=== PATIENT | male | born 1955 | race Hispanic/Latino ===

== ENCOUNTER 2019-10-28 19:14 | Emergency (ER) | payer OTHER, SELFPAY ==
[2019-10-28] VITALS (9 sets, daily range): BP systolic 174–211; BP diastolic 100–179; PULSE 61–65; RESP 17–23; TEMP 36.2; O2SAT 94–99; BMI 29.5
--- NOTE | 2019-10-28 19:41 | RAD_ITS ---
STUDY: X-RAY - RIGHT SHOULDER REASON FOR EXAM: Male, 64 years old. fell today TECHNIQUE: 2 view(s) of the shoulder. COMPARISON: None. FINDINGS: The humerus is anteriorly inferiorly dislocated and locked below the glenoid process. The humerus is intact. RAD/Shoulder min 2 Views IMPRESSION: Anterior inferior dislocation of the humerus. Electronically Signed: Jordyn Cunningham, at 20:27 EDT Tel , Service support ,
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
[2019-10-28] MEDS: Ondansetron 4 MG/2 ML Vial IV (19:50)
[2019-10-28] MEDS: Morphine 4 MG/ML Syringe IM (19:50)
[2019-10-28] MEDS: 0.9% Normal Saline 1,000 ML 999 ML IV (20:43)
[2019-10-28] MEDS: Propofol 200 MG/20 ML Vial IV BOLUS (21:37)
--- NOTE | 2019-10-28 22:15 | RAD_ITS ---
STUDY: X-RAY - RIGHT SHOULDER REASON FOR EXAM: Male, 64 years old. POST REDUCTION AFTER RIGHT SHOULDER DISLOCATION. TECHNIQUE: 2 view(s) of the shoulder. COMPARISON: None. FINDINGS: Right glenohumeral joint has been relocated. There are a Hill-Sachs deformity of the superolateral humerus and a possible [place] abnormality of the glenoid. RAD/Shoulder min 2 Views IMPRESSION: Relocation of the shoulder. Superolateral humeral injury, possible [place], specialty referral is advised. Electronically Signed: Jordyn Cunningham, at 22:52 EDT Tel , Service support ,
[2019-10-28] MEDS: Morphine 4 MG/ML Syringe IV (22:18)
[2019-10-28] MEDS: HYDROcodone Bitartrate/Apap 5/325 Tablet PO (23:17)
== END 2019-10-28 23:19 | disposition home or self-care (01) ==
PROVIDERS: Emergency Provider Student in an Organized Health Care Education/Training Program
DX: S43.014A Anterior dislocation of right humerus, initial encounter (principal); S43.034A Inferior dislocation of right humerus, initial encounter; V92.05XA Drowning and submersion due to fall off canoe or kayak, initial encounter; Y93.9 Activity, unspecified; Y92.9 Unspecified place or not applicable
CPT/HCPCS: 23650; 73030; 96361; 96372; 96374; 96375; 99284; J7030; A4216; J2405